=== PATIENT | female | born 2000 | race American Indian/Alaskan Native ===

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

== ENCOUNTER 2022-03-02 10:28 | Emergency (ER) | payer MEDICAID ==
[2022-03-02 10:45] VITALS: BP 142/59
--- NOTE | 2022-03-02 11:37 | Emergency Department Report ---
ED General Adult HPI - General Chief complaint: Pain General Stated complaint: CHEST PAIN Source: patient Mode of arrival: Ambulatory Limitations: No Limitations - History of Present Illness Initial comments: 21-year-old female presents to the ED complaining body ache and fever. She states that she took some cough syrup and Advil [id number] and was concerned with her "kidney". She states that she read online that you should not mix dugv-[id number] medication with mehr-gpz-iijjsep cough syrup. She states that her friend has similar symptoms of fever chills but her symptoms are worse. She states she is not vaccinated to the COVID-vaccine. Patient does not has a rash . Patient denies any pain at present time. She states last menstrual cycle was last month but do not know the date. Patient is alert and oriented x3. No acute distress noted no ill appearance noted. Severity scale (0 -10): 7 - Related Data Previous Rx's Medication Instructions Recorded Last Taken Type Ibuprofen [Motrin] 800 mg PO Q8HR PRN 15 Days #30 03/02/22 Unknown Rx tablet Allergies Allergy/AdvReac Type Severity Reaction Status Date / Time No Known Allergies Allergy Verified 03/02/22 10:45 ED Review of Systems ROS: Stated complaint: CHEST PAIN Other details as noted in HPI Constitutional: denies: chills, fever Eyes: denies: eye pain, eye discharge, vision change ENT: denies: ear pain, throat pain Respiratory: denies: cough, shortness of breath, wheezing Cardiovascular: denies: chest pain, palpitations Endocrine: no symptoms reported Gastrointestinal: denies: abdominal pain, nausea, diarrhea Genitourinary: denies: urgency, dysuria, discharge Musculoskeletal: denies: back pain, joint swelling, arthralgia Skin: denies: rash, lesions Neurological: denies: headache, weakness, paresthesias Psychiatric: denies: anxiety, depression Hematological/Lymphatic: denies: easy bleeding, easy bruising ED Past Medical Hx - Past Medical History Hx Hypertension: No Hx CVA: No Hx Heart Attack/AMI: No Hx Congestive Heart Failure: No Hx Diabetes: No Hx Deep Vein Thrombosis: No Hx Pulmonary Embolism: No Hx GERD: No Hx Liver Disease: No Hx Renal Disease: No Hx Sickle Cell Disease: No Hx Arthritis: No Hx Headaches / Migraines: No Hx Seizures: No Hx Kidney Stones: No Hx Psychiatric Treatment: No Hx Asthma: No Hx COPD: No Hx Tuberculosis: No Hx Dementia: No Hx HIV: No - Surgical History Hx Coronary Stent: No Hx Open Heart Surgery: No Hx Pacemaker: No Hx Internal Defibrillator: No Hx Cholecystectomy: No Hx Appendectomy: No Hx Breast Surgery: No Additional Surgical History: oral surgery today - Social History Smoking Status: Never Smoker Substance Use Type: None - Medications Home Medications: Home Medications Medication Instructions Recorded Confirmed Last Taken Type Ibuprofen [Motrin] 800 mg PO Q8HR PRN 15 Days #30 03/02/22 Unknown Rx tablet ED Physical Exam - General Limitations: No Limitations General appearance: alert, in no apparent distress - Head Head exam: Present: atraumatic, normocephalic - Eye Eye exam: Present: normal appearance - ENT ENT exam: Present: mucous membranes moist - Neck Neck exam: Present: normal inspection - Respiratory Respiratory exam: Present: normal lung sounds bilaterally. Absent: respiratory distress - Cardiovascular Cardiovascular Exam: Present: regular rate, normal rhythm. Absent: systolic murmur, diastolic murmur, rubs, gallop - GI/Abdominal GI/Abdominal exam: Present: soft, normal bowel sounds - Extremities Exam Extremities exam: Present: normal inspection - Back Exam Back exam: Present: normal inspection - Neurological Exam Neurological exam: Present: alert, oriented X3 - Psychiatric Psychiatric exam: Present: normal affect, normal mood - Skin Skin exam: Present: warm, dry, intact, normal color. Absent: rash ED Course Vital Signs 03/02/22 10:41 Temperature 99.7 F H Pulse Rate 110 H Respiratory 18 Rate Blood Pressure 142/59 [Right] O2 Sat by Pulse 99 Oximetry ED Medical Decision Making - Lab Data Result diagrams: 03/02/22 11:14 03/02/22 11:14 - Radiology Data [facility] [address] [place] [address] XRay Report Signed Patient: ESAU BRADLEY MR#: [id number] : 2000 Acct:[id number] Age/Sex: 21 / F ADM Date: 03/02/22 Loc: ED Attending Dr: Ordering Physician: JOSE CRUZ BARNETT Date of Service: 03/02/22 Procedure(s): XR chest routine 2V Accession Number(s): [id number] cc: DENETRA L MAXIMILIANO, [employer] Fluoro Time In Minutes: CHEST 2 VIEWS INDICATION / CLINICAL INFORMATION: Chest pain starting this morning. COMPARISON: None available. FINDINGS: SUPPORT DEVICES: None. HEART / MEDIASTINUM: The heart size and pulmonary vasculature are normal. The aorta is normal in caliber. LUNGS / PLEURA: No significant pulmonary or pleural abnormality. No pneumothorax. ADDITIONAL FINDINGS: No significant additional findings. IMPRESSION: No acute findings. Signer Name: Hugo Goldstein MD Signed: 03/02/2022 12:47 PM Workstation Name: [id number] Transcribed By: RT Dictated By: Hugo Goldstein MD Electronically Authenticated By: Hugo Goldstein MD Signed Date/Time: 03/02/221246 DD/ 46 TD/TT: - Medical Decision Making 21-year-old female presents to the ED complaining body ache and fever. She states that she took some cough syrup and Advil eyuu-eob-vsxbqrv and was concerned with her "kidney". She states that she read online that you should not mix samj-jln-zblmjpf medication with szsr-mtb-dffynar cough syrup. She states that her friend has similar symptoms of fever chills but her symptoms are worse. She states she is not vaccinated to the COVID-vaccine. Patient does not has a rash . Patient denies any pain at present time. She states last menstrual cycle was last month but do not know the date. Patient is alert and oriented x3. No acute distress noted no ill appearance noted. Physical examination is unremarkable Abnormal Lab Results 03/02/22 03/02/22 03/02/22 11:14 11:14 Unknown WBC 5.9 RBC 4.56 Hgb 12.1 Hct 37.9 MCV 83 MCH 27 L MCHC 32 RDW 13.6 Plt Count 268 Sodium 140 Potassium 3.9 Chloride 107.1 H Carbon Dioxide 25 Anion Gap 12 BUN 5 L Creatinine 0.7 Estimated GFR > 60 BUN/Creatinine Ratio 7 Glucose 77 Calcium 8.8 Total Bilirubin 0.60 AST 17 ALT 16 Alkaline Phosphatase 50 Total Protein 6.3 Albumin 4.2 Albumin/Globulin Ratio 2.0 Urine Color Straw Urine Turbidity Clear Urine pH 8.5 H Ur Specific [place] 1.005 Urine Protein <15 mg/dl Urine Glucose (UA) Negative Urine Ketones Negative Urine Blood Negative Urine Nitrite Negative Ur Reducing Substances Not Reportable Urine Bilirubin Negative Urine Ictotest Not Reportable Urine Urobilinogen < 2.0 Ur Leukocyte Esterase Negative Urine WBC (Auto) 1.0 Urine RBC (Auto) 1.0 U Epithel Cells (Auto) 2.0 Urine HCG, Qual Negative Critical care attestation.: If time is entered above; I have spent that time in minutes in the direct care of this critically ill patient, excluding procedure time. ED Disposition Clinical Impression: Exposure to COVID-19 virus Disposition: HOME / SELF CARE / HOMELESS Is pt being admited?: No Does the pt Need Aspirin: No Condition: Stable Instructions: COVID-19 Frequently Asked Questions, COVID-19 Additional Instructions: Your symptoms appear most consistent with a nonspecific viral syndrome. However, given this current pandemic, COVID-19 is in the differential of possibilities. Despite your previous negative COVID-19 test, I do recommend repeat outpatient Covid 19 testing. In the meantime, isolate/quarantine yourself and stay away from anyone who is elderly, immunocompromised or chronically ill. You can use ibuprofen every 6-8 hours and Tylenol every 4-8 hours, using the dosing on the back of the bottle, as needed for any fever or body aches. Return to the emergency department with any worsening of your symptoms, development of chest pain or shortness of breath, or with any acute distress. Prescriptions: Ibuprofen [Motrin] 800 mg PO Q8HR PRN 15 Days #30 tablet PRN Reason: Pain, Mild (1-3) Referrals: JESE LIN MD [Primary Care Provider] - 3-5 Days Forms: Work/School Release Form(ED) Time of Disposition: 13:31
[2022-03-02 12:02] LABS: Hematocrit 37.9 % (30.3-42.9); Hemoglobin 12.1 gm/dl (10.1-14.3); Mean Corpuscular HGB Conc 32 % (30-34); Mean Corpuscular Volume 83 fl (79-97); Platelet Count 268 K/mm3 (140-440); Red Blood Count 4.56 M/mm3 (3.65-5.03); Red Cell Distribution Width 13.6 % (13.2-15.2)
[2022-03-02 12:13] LABS: Alanine Aminotransferase 16 units/L (7-56); Albumin 4.2 g/dL (3.9-5); Blood Urea Nitrogen 5 mg/dL (7-17); Calcium 8.8 mg/dL (8.4-10.2); Hemolysis Index 5
[2022-03-02 12:15] LABS: BUN/Creatinine Ratio 7
[2022-03-02 12:20] LABS: HCG Qualitative,Urine Negative (Negative)
--- NOTE | 2022-03-02 12:52 | XRay Report ---
CHEST 2 VIEWS INDICATION / CLINICAL INFORMATION: Chest pain starting this morning. COMPARISON: None available. FINDINGS: SUPPORT DEVICES: None. HEART / MEDIASTINUM: The heart size and pulmonary vasculature are normal. The aorta is normal in efrain tran. LUNGS / PLEURA: No significant pulmonary or pleural abnormality. No pneumothorax. ADDITIONAL FINDINGS: No significant additional findings. IMPRESSION: No acute findings. Signer Name: Hugo Goldstein MD Signed: 03/02/2022 12:47 PM Workstation Name: [id number]
[2022-03-02 12:58] LABS: Color,Urine Straw (Yellow)
[2022-03-02 12:59] LABS: Bilirubin,Urine Negative (Negative)
[2022-03-02 13:00] LABS: Blood,Urine Negative (Negative); PH,Urine 8.5 (5.0-7.0); Protein,Urine <15 mg/dL mg/dL (Negative); Urobilinogen,Urine < 2.0 mg/dL (<2.0)
== END 2022-03-02 14:00 | disposition home or self-care (01) ==
LOC: ED 10:28
DX: R50.9 Fever, unspecified (principal); R05.9 Cough, unspecified; Z20.822 Contact with and (suspected) exposure to COVID-19
CPT/HCPCS: 36415; 71046; 80053; 81001; 81025; 85027; 99283